=== PATIENT | male | born 1955 | race Caucasian/White ===

== ENCOUNTER 2019-02-09 10:05 | Observation (INO) | payer OTHER ==
[2019-02-09 10:26] LABS: ADD MAN DIFF? NO
[2019-02-09 10:30] LABS: ABNORMAL IP MESSAGE 1; BASOPHILS % 0.4 % (0.0-2.0); EOSINOPHILS # 0.1 10^3/ul (0.0-0.5); HEMATOCRIT 40.8 % (42.0-52.0); HEMOGLOBIN 13.5 g/dl (14.0-18.0); LYMPHOCYTES # 1.1 10^3/ul (0.8-2.9); LYMPHOCYTES % 21.6 % (15.0-51.0); MEAN CORPUSCULAR HEMOGLOBIN 32.5 pg (29.0-33.0); MEAN CORPUSCULAR HGB CONC 33.1 g/dl (32.0-37.0); MEAN CORPUSCULAR VOLUME 98.3 fl (82.0-101.0); MEAN PLATELET VOLUME 13.1 fl (7.4-10.4); MONOCYTE # 0.6 10^3/ul (0.3-0.9); MONOCYTES % 11.5 % (0.0-11.0); NEUTROPHIL # 3.2 10^3/ul (1.6-7.5); NEUTROPHILS % 64.9 % (39.0-77.0); PLATELET COUNT 58 10^3/UL (140-415); POSITIVE DIFF @See below; RED BLOOD COUNT 4.15 10^6/ul (4.70-6.10); RED CELL DISTRIBUTION WIDTH 13.5 % (11.5-14.5)
[2019-02-09] MEDS: LEVETIRACETAM 1000 MG (PMX) 100 ML IVPB ×2 (10:33→20:59)
[2019-02-09 10:47] LABS: ALANINE AMINOTRANSFERASE 24 IU/L (13-69); ALBUMIN 3.5 g/dl (3.3-4.9); ALBUMIN/GLOBULIN RATIO 0.71; ALKALINE PHOSPHATASE 126 IU/L (42-121); ANION GAP 22 (5-13); ASPARTATE AMINO TRANSFERASE 53 IU/L (15-46); BILIRUBIN,INDIRECT 1.3 mg/dl (0-1.1); BILIRUBIN,TOTAL 1.3 mg/dl (0.2-1.3); BLOOD UREA NITROGEN 24 mg/dl (7-20); CALCIUM 8.3 mg/dl (8.4-10.2); CARBON DIOXIDE 17 mmol/L (21-31); CHLORIDE 103 mmol/L (97-110); CREATININE 1.14 mg/dl (0.61-1.24); Estimated GFR > 60 mL/min (>60); GLUCOSE 138 mg/dl (70-220); POTASSIUM 3.6 mmol/L (3.5-5.1); SODIUM 142 mmol/L (135-144); TOTAL PROTEIN 8.4 g/dl (6.1-8.1)
[2019-02-09 10:47] LABS: MAGNESIUM 2.1 mg/dl (1.7-2.5)
[2019-02-09 10:48] LABS: ACETAMINOPHEN < 10.0 ug/ml (10.0-30.0); ETHANOL < 10.0 mg/dl (0-0); SALICYLATE < 1.0 mg/dl (5.0-30.0)
[2019-02-09 10:48] LABS: AMMONIA 280 umol/l (9-30)
[2019-02-09 10:49] LABS: INR 1.15; PROTIME 14.8 Sec (11.9-14.9); PT RATIO 1.2
[2019-02-09 10:50] LABS: PARTIAL THROMBOPLASTIN TIME 35.2 Sec (23.0-35.0)
[2019-02-09 10:58] LABS: TROPONIN-I < 0.012 ng/ml (0.000-0.120)
[2019-02-09] MEDS: ONDANSETRON 4 MG INJ IV (11:05)
[2019-02-09] MEDS: DEXAMETHASONE 10 MG/ML 1 ML INJ IM (11:29)
[2019-02-09] MEDS ORDERED: ACETAMINOPHEN 325 MG TAB PO ×2 (12:00→14:30)
[2019-02-09] MEDS ORDERED: ONDANSETRON 4 MG INJ IV ×2 (12:00→14:30)
[2019-02-09] MEDS: LACTULOSE 30ML CUP PO ×3 (13:45→17:10)
[2019-02-09] MEDS ORDERED: ZOLPIDEM 5 MG TAB PO (14:30)
[2019-02-09] MEDS ORDERED: traMADol 50 MG TAB PO (15:00)
[2019-02-09] MEDS: DEXAMETHASONE 4 MG/ML 1 ML INJ IV ×2 (15:54→17:10)
[2019-02-09] MEDS: SPIRONOLACTONE 50 MG TAB PO (15:54)
[2019-02-09] MEDS: FUROSEMIDE 40 MG TAB PO (15:55)
[2019-02-09 16:27] LABS: LACTIC ACID 3.3 mmol/L (0.5-2.0)
[2019-02-09] MEDS: PANTOPRAZOLE 40 MG INJ IV (17:11)
[2019-02-09] MEDS ORDERED: DEXAMETHASONE 4 MG/ML 1 ML INJ IV (18:00)
[2019-02-09 20:12] LABS: LACTIC ACID 4.6 mmol/L (0.5-2.0)
[2019-02-10] MEDS: DEXAMETHASONE 4 MG/ML 1 ML INJ IV ×3 (00:38→13:28)
[2019-02-10] MEDS: LACTULOSE 30ML CUP PO ×3 (00:38→13:28)
[2019-02-10] MEDS: FUROSEMIDE 40 MG TAB PO (05:56)
[2019-02-10] MEDS: PANTOPRAZOLE 40 MG INJ IV (06:01)
[2019-02-10] MEDS: SPIRONOLACTONE 50 MG TAB PO (06:02)
[2019-02-10 06:24] LABS: ADD MAN DIFF? NO
[2019-02-10 06:26] LABS: ABNORMAL IP MESSAGE 1; BASOPHILS % 0.1 % (0.0-2.0); HEMATOCRIT 33.7 % (42.0-52.0); HEMOGLOBIN 11.8 g/dl (14.0-18.0); LYMPHOCYTES # 0.5 10^3/ul (0.8-2.9); LYMPHOCYTES % 6.1 % (15.0-51.0); MEAN CORPUSCULAR VOLUME 94.1 fl (82.0-101.0); MEAN PLATELET VOLUME 12.8 fl (7.4-10.4); MONOCYTE # 0.2 10^3/ul (0.3-0.9); MONOCYTES % 2.7 % (0.0-11.0); NEUTROPHIL # 6.8 10^3/ul (1.6-7.5); NEUTROPHILS % 90.6 % (39.0-77.0); PLATELET COUNT 55 10^3/UL (140-415); POSITIVE DIFF @See below; RED BLOOD COUNT 3.58 10^6/ul (4.70-6.10); RED CELL DISTRIBUTION WIDTH 12.6 % (11.5-14.5)
[2019-02-10 06:26] LABS: WHITE BLOOD COUNT 7.5 10^3/ul (4.8-10.8)
[2019-02-10] MEDS: LEVETIRACETAM 1000 MG (PMX) 100 ML IVPB (09:05)
[2019-02-10] MEDS: oxyCODONE (CR) 10 MG TAB [oxyCONTIN] PO (11:06)
== END 2019-02-10 15:20 | disposition home or self-care (01) ==
LOC: E/R 10:05 → TEL 11:58
PROVIDERS: Internal Medicine
DX: G40.909 Epilepsy, unspecified, not intractable, without status epilepticus (principal); G93.9 Disorder of brain, unspecified; I10 Essential (primary) hypertension; K74.60 Unspecified cirrhosis of liver; D69.6 Thrombocytopenia, unspecified; E11.9 Type 2 diabetes mellitus without complications
CPT/HCPCS: 36415; 70450; 70553; 71045; 80053; 80307; 82140; 83605; 83735; 84484; 85025; 85610; 85730; 93005; 95819; 96372; 96374; 96375; 99285-25; G0378

== ENCOUNTER 2019-02-23 11:43 | Inpatient (IN) | payer OTHER ==
[2019-02-23] MEDS: LACTULOSE 30ML CUP PO (11:45)
[2019-02-23 12:14] LABS: ADD MAN DIFF? NO
[2019-02-23 12:19] LABS: WHITE BLOOD COUNT 14.8 10^3/ul (4.8-10.8)
[2019-02-23 12:19] LABS: ABNORMAL IP MESSAGE 1; BASOPHILS % 0.2 % (0.0-2.0); HEMATOCRIT 44.2 % (42.0-52.0); HEMOGLOBIN 15.5 g/dl (14.0-18.0); LYMPHOCYTES # 0.7 10^3/ul (0.8-2.9); LYMPHOCYTES % 4.9 % (15.0-51.0); MEAN CORPUSCULAR HEMOGLOBIN 32.2 pg (29.0-33.0); MEAN CORPUSCULAR HGB CONC 35.1 g/dl (32.0-37.0); MEAN CORPUSCULAR VOLUME 91.9 fl (82.0-101.0); MEAN PLATELET VOLUME 12.7 fl (7.4-10.4); MONOCYTE # 0.9 10^3/ul (0.3-0.9); MONOCYTES % 6.3 % (0.0-11.0); NEUTROPHILS % 87.7 % (39.0-77.0); PLATELET COUNT 56 10^3/UL (140-415); POSITIVE DIFF @See below; RED BLOOD COUNT 4.81 10^6/ul (4.70-6.10); RED CELL DISTRIBUTION WIDTH 12.6 % (11.5-14.5)
[2019-02-23] MEDS: HALOPERIDOL 5 MG INJ IM ×2 (12:27→13:40)
[2019-02-23 12:37] LABS: ALANINE AMINOTRANSFERASE 63 IU/L (13-69); ALBUMIN/GLOBULIN RATIO 0.66; ALKALINE PHOSPHATASE 110 IU/L (42-121); ANION GAP 12 (5-13); ASPARTATE AMINO TRANSFERASE 36 IU/L (15-46); BILIRUBIN,INDIRECT 1.5 mg/dl (0-1.1); BILIRUBIN,TOTAL 1.5 mg/dl (0.2-1.3); BLOOD UREA NITROGEN 48 mg/dl (7-20); CALCIUM 8.4 mg/dl (8.4-10.2); CARBON DIOXIDE 25 mmol/L (21-31); CHLORIDE 92 mmol/L (97-110); CREATININE 0.78 mg/dl (0.61-1.24); Estimated GFR > 60 mL/min (>60); POTASSIUM 4.1 mmol/L (3.5-5.1); SODIUM 129 mmol/L (135-144); TOTAL PROTEIN 7.5 g/dl (6.1-8.1)
[2019-02-23 13:03] LABS: ACETAMINOPHEN < 10.0 ug/ml (10.0-30.0); ETHANOL < 10.0 mg/dl (0-0); SALICYLATE < 1.0 mg/dl (5.0-30.0)
[2019-02-23 13:04] LABS: GLUCOSE 460 mg/dl (70-220)
[2019-02-23 13:04] LABS: AMMONIA 175 umol/l (9-30)
[2019-02-23] MEDS ORDERED: LORAZEPAM 2 MG INJ (13:37)
[2019-02-23] MEDS: LORAZEPAM 2 MG INJ IV (13:40)
[2019-02-23] MEDS: LACTULOSE ENEMA 1,000 ML BTL PR (13:54)
[2019-02-23] MEDS ORDERED: ACETAMINOPHEN 325 MG TAB PO (14:00)
[2019-02-23] MEDS ORDERED: ONDANSETRON 4 MG INJ IV (14:00)
[2019-02-23] MEDS: LIDOCAINE 2% 20 ML UROJET SYRINGE MM (15:01)
[2019-02-23] MEDS: LACTULOSE 30ML CUP NGT ×2 (15:11→23:40)
[2019-02-23] MEDS ORDERED: NACL 0.9% 3 ML SYG IV (16:00)
[2019-02-23] MEDS: FOLIC ACID 1 MG TAB NGT (16:45)
[2019-02-23] MEDS: DEXAMETHASONE 4 MG TAB NGT ×2 (16:45→23:41)
[2019-02-23] MEDS: ACCU-CHEK XX (16:45)
[2019-02-23] MEDS: INSULIN ASPART [NOVOLOG] 3 ML PEN SC (16:47)
[2019-02-23] MEDS: INSULIN GLARGINE [LANTus] (100 UNITS/ML) SYG SC (16:57)
[2019-02-23] MEDS: POTASSIUM CHLORIDE 10 MEQ in SOD CHLORIDE 0.9% 1,000 ML IV (17:45)
[2019-02-23 17:50] LABS: LACTIC ACID 4.6 mmol/L (0.5-2.0)
[2019-02-23] MEDS: PIPER-TAZO 3.375 GM IV (PMX) 100 ML IVPB (18:51)
[2019-02-23 19:09] LABS: LACTIC ACID 4.3 mmol/L (0.5-2.0)
[2019-02-23] MEDS ORDERED: GLUCOSE GEL 15 GRAM TUBE BUCCAL (22:00)
[2019-02-23] MEDS ORDERED: GLUCAGON 1 MG INJ IM (22:00)
[2019-02-23] MEDS ORDERED: GLUCOSE GEL 15 GRAM TUBE PO ×2 (22:00)
[2019-02-23] MEDS ORDERED: DEXTROSE 50% 50 ML SYRINGE IV ×2 (22:00)
[2019-02-23] MEDS: FAMOTIDINE 20 MG INJ IV (23:40)
[2019-02-23] MEDS: LEVETIRACETAM 500 MG TAB NGT (23:40)
[2019-02-23 23:54] LABS: ANION GAP 10 (5-13); BLOOD UREA NITROGEN 46 mg/dl (7-20); CALCIUM 8.2 mg/dl (8.4-10.2); CARBON DIOXIDE 25 mmol/L (21-31); CHLORIDE 94 mmol/L (97-110); Estimated GFR > 60 mL/min (>60); GLUCOSE 321 mg/dl (70-220); POTASSIUM 3.4 mmol/L (3.5-5.1); SODIUM 129 mmol/L (135-144)
[2019-02-24] LABS: AMMONIA 133 umol/l (9-30)
[2019-02-24 00:04] LABS: LACTIC ACID 3.9 mmol/L (0.5-2.0)
[2019-02-24] MEDS: ACCU-CHEK XX ×9 (01:00→17:11)
[2019-02-24] MEDS: PIPER-TAZO 3.375 GM IV (PMX) 100 ML IVPB ×3 (02:56→17:29)
[2019-02-24] MEDS: NS + KCL 20 MEQ 1,000 ML IV ×3 (02:56→20:29)
[2019-02-24 05:14] LABS: ADD MAN DIFF? NO
[2019-02-24 05:21] LABS: ABNORMAL IP MESSAGE 1; BASOPHILS % 0.2 % (0.0-2.0); HEMATOCRIT 37.9 % (42.0-52.0); HEMOGLOBIN 13.6 g/dl (14.0-18.0); LYMPHOCYTES # 0.4 10^3/ul (0.8-2.9); MEAN CORPUSCULAR HEMOGLOBIN 32.5 pg (29.0-33.0); MEAN CORPUSCULAR HGB CONC 35.9 g/dl (32.0-37.0); MEAN CORPUSCULAR VOLUME 90.5 fl (82.0-101.0); MEAN PLATELET VOLUME 13.3 fl (7.4-10.4); MONOCYTE # 0.5 10^3/ul (0.3-0.9); MONOCYTES % 4.1 % (0.0-11.0); NEUTROPHIL # 10.6 10^3/ul (1.6-7.5); NEUTROPHILS % 91.9 % (39.0-77.0); PLATELET COUNT 43 10^3/UL (140-415); POSITIVE DIFF @See below; RED BLOOD COUNT 4.19 10^6/ul (4.70-6.10); RED CELL DISTRIBUTION WIDTH 12.6 % (11.5-14.5)
[2019-02-24 05:21] LABS: WHITE BLOOD COUNT 11.5 10^3/ul (4.8-10.8)
[2019-02-24 05:58] LABS: AMMONIA 154 umol/l (9-30)
[2019-02-24] MEDS: DEXAMETHASONE 4 MG TAB NGT ×3 (06:06→21:35)
[2019-02-24] MEDS: INSULIN LISPRO 100 UNIT/ML VIAL SC (06:09)
[2019-02-24 06:22] LABS: ANION GAP 8 (5-13); BLOOD UREA NITROGEN 45 mg/dl (7-20); CALCIUM 7.9 mg/dl (8.4-10.2); CARBON DIOXIDE 26 mmol/L (21-31); CHLORIDE 98 mmol/L (97-110); CREATININE 0.84 mg/dl (0.61-1.24); Estimated GFR > 60 mL/min (>60); GLUCOSE 340 mg/dl (70-220); MAGNESIUM 2.9 mg/dl (1.7-2.5); POTASSIUM 3.7 mmol/L (3.5-5.1); SODIUM 132 mmol/L (135-144)
[2019-02-24 06:23] LABS: CREATINE KINASE 107 IU/L (23-200)
[2019-02-24 06:35] LABS: CK INDEX 1.1; CK-MB 1.17 ng/ml (0.0-2.4); TROPONIN-I < 0.012 ng/ml (0.000-0.120)
[2019-02-24 07:22] LABS: HEMOGLOBIN A1C 8.2 % (0-5.9)
[2019-02-24] MEDS: FOLIC ACID 1 MG TAB NGT (08:36)
[2019-02-24] MEDS: SPIRONOLACTONE 50 MG TAB NGT (08:36)
[2019-02-24] MEDS: LEVETIRACETAM 500 MG TAB NGT ×2 (08:36→20:29)
[2019-02-24] MEDS: FUROSEMIDE 40 MG TAB NGT (08:37)
[2019-02-24] MEDS: FAMOTIDINE 20 MG INJ IV ×2 (08:37→20:28)
[2019-02-24] MEDS: LACTULOSE 30ML CUP NGT ×3 (08:37→20:28)
[2019-02-24] MEDS: INSULIN ASPART [NOVOLOG] 3 ML PEN SC ×3 (10:39→21:36)
[2019-02-24] MEDS: ONDANSETRON 4 MG INJ IV (10:42)
[2019-02-24 11:07] LABS: CREATINE KINASE 96 IU/L (23-200)
[2019-02-24 11:20] LABS: CK INDEX 1.4; CK-MB 1.32 ng/ml (0.0-2.4); TROPONIN-I < 0.012 ng/ml (0.000-0.120)
[2019-02-24] MEDS ORDERED: SERTRALINE 50 MG TAB PO (17:40)
[2019-02-24 18:02] LABS: INR 1.29; PROTIME 16.2 Sec (11.9-14.9); PT RATIO 1.3
[2019-02-24] MEDS: QUETIAPINE 25 MG TAB PO (18:02)
[2019-02-24 18:33] LABS: AMMONIA 28 umol/l (9-30)
[2019-02-24 18:34] LABS: ANION GAP 12 (5-13); BLOOD UREA NITROGEN 51 mg/dl (7-20); CALCIUM 8.2 mg/dl (8.4-10.2); CARBON DIOXIDE 22 mmol/L (21-31); CHLORIDE 102 mmol/L (97-110); Estimated GFR > 60 mL/min (>60); GLUCOSE 238 mg/dl (70-220); POTASSIUM 3.8 mmol/L (3.5-5.1); SODIUM 136 mmol/L (135-144)
[2019-02-24 18:42] LABS: AMPHETAMINE/METHAMPHETAMINE Negative (NEGATIVE); BARBITURATES Negative (NEGATIVE); BENZODIAZEPINES Negative (NEGATIVE); CANNABINOIDS Negative (NEGATIVE); COCAINE Negative (NEGATIVE); OPIATES Negative (NEGATIVE)
[2019-02-24 19:29] LABS: ADD UMIC YES; UR ASCORBIC ACID NEGATIVE (NEGATIVE); UR BILIRUBIN (Dip) NEGATIVE (NEGATIVE); UR BLOOD (Dip) 1+ mg/dL (NEGATIVE); UR CLARITY CLEAR (CLEAR); UR COLOR YELLOW (YELLOW); UR GLUCOSE (Dip) NEGATIVE (NEGATIVE); UR HYALINE CAST MODERATE /HPF (NONE SEEN); UR KETONES (Dip) NEGATIVE (NEGATIVE); UR LEUKOCYTE ESTERASE (Dip) NEGATIVE Leu/ul (NEGATIVE); UR NITRITE (Dip) NEGATIVE (NEGATIVE); UR RBC 22 /HPF (0-5); UR TOTAL PROTEIN (Dip) NEGATIVE (NEGATIVE); UR UROBILINOGEN (Dip) NEGATIVE (NEGATIVE); UR WBC 0 /HPF (0-5)
[2019-02-24] MEDS: CEFTRIAXONE 1 GM/50 ML (PMX) 50 ML IVPB (20:28)
[2019-02-24] MEDS: RIFAXIMIN 550 MG TAB NGT (20:29)
[2019-02-24] MEDS: LORAZEPAM 2 MG INJ IV (23:58)
[2019-02-25] MEDS: INSULIN ASPART [NOVOLOG] 3 ML PEN SC ×6 (00:33→20:52)
[2019-02-25] MEDS: NS + KCL 20 MEQ 1,000 ML IV ×2 (00:44→10:28)
[2019-02-25] MEDS ORDERED: ACCU-CHEK XX (02:00)
[2019-02-25] MEDS: QUETIAPINE 25 MG TAB PO ×2 (04:30→20:40)
[2019-02-25 04:47] LABS: AADO2 Arterial 57.5 mmHg (7.0-24.0); Allen Test ACCEPTAB; Arterial Base Excess -0.1 mmol/L (-3.0-3); Arterial Blood Gas Oxygen Sat 88.4 mmHG (95.0-98.0); Arterial COHb 1.3 % (0.0-3.0); Arterial HCO3 22.4 mmol/L (22.0-26.0); Arterial MetHb 0.3 % (0.0-1.5); Arterial pCO2 30.7 mmhg (35-45); MODE ROOM AIR; Site Right Radial
[2019-02-25 05:19] LABS: ADD MAN DIFF? NO
[2019-02-25 05:24] LABS: WHITE BLOOD COUNT 17.4 10^3/ul (4.8-10.8)
[2019-02-25 05:24] LABS: ABNORMAL IP MESSAGE 1; BASOPHILS % 0.2 % (0.0-2.0); HEMATOCRIT 40.9 % (42.0-52.0); HEMOGLOBIN 13.8 g/dl (14.0-18.0); LYMPHOCYTES # 0.4 10^3/ul (0.8-2.9); LYMPHOCYTES % 2.4 % (15.0-51.0); MEAN CORPUSCULAR HEMOGLOBIN 32.2 pg (29.0-33.0); MEAN CORPUSCULAR HGB CONC 33.7 g/dl (32.0-37.0); MEAN CORPUSCULAR VOLUME 95.3 fl (82.0-101.0); MEAN PLATELET VOLUME 13.4 fl (7.4-10.4); MONOCYTE # 0.7 10^3/ul (0.3-0.9); MONOCYTES % 3.8 % (0.0-11.0); NEUTROPHIL # 16.2 10^3/ul (1.6-7.5); NEUTROPHILS % 92.8 % (39.0-77.0); POSITIVE DIFF @See below; RED BLOOD COUNT 4.29 10^6/ul (4.70-6.10); RED CELL DISTRIBUTION WIDTH 13.1 % (11.5-14.5)
[2019-02-25] MEDS: DEXAMETHASONE 4 MG TAB NGT ×3 (05:24→22:41)
[2019-02-25 05:43] LABS: LACTIC ACID 4.7 mmol/L (0.5-2.0)
[2019-02-25 05:44] LABS: ANION GAP 8 (5-13); BLOOD UREA NITROGEN 55 mg/dl (7-20); CALCIUM 8.4 mg/dl (8.4-10.2); CARBON DIOXIDE 27 mmol/L (21-31); CHLORIDE 106 mmol/L (97-110); CREATININE 1.16 mg/dl (0.61-1.24); Estimated GFR > 60 mL/min (>60); GLUCOSE 186 mg/dl (70-220); PLATELET COUNT 30 10^3/UL (140-415); SODIUM 141 mmol/L (135-144)
[2019-02-25] MEDS: FAMOTIDINE 20 MG INJ IV ×2 (09:49→20:47)
[2019-02-25] MEDS: FOLIC ACID 1 MG TAB NGT (10:02)
[2019-02-25] MEDS: LACTULOSE 30ML CUP NGT ×3 (10:02→20:47)
[2019-02-25] MEDS: RIFAXIMIN 550 MG TAB NGT ×2 (10:02→20:47)
[2019-02-25] MEDS: LEVETIRACETAM 500 MG TAB NGT ×2 (10:02→22:40)
[2019-02-25] MEDS: FUROSEMIDE 40 MG TAB NGT (10:03)
[2019-02-25] MEDS: SPIRONOLACTONE 50 MG TAB NGT (10:03)
[2019-02-25] MEDS: PIPER-TAZO 3.375 GM IV (PMX) 100 ML IVPB ×2 (14:52→22:44)
[2019-02-25] MEDS: INSULIN GLARGINE [LANTus] (100 UNITS/ML) SYG SC (20:49)
[2019-02-26] MEDS: INSULIN ASPART [NOVOLOG] 3 ML PEN SC ×6 (01:30→21:28)
[2019-02-26] MEDS: NS + KCL 20 MEQ 1,000 ML IV ×3 (03:19→23:05)
[2019-02-26] MEDS: QUETIAPINE 25 MG TAB PO (04:43)
[2019-02-26] MEDS: PIPER-TAZO 3.375 GM IV (PMX) 100 ML IVPB (05:08)
[2019-02-26] MEDS: DEXAMETHASONE 4 MG TAB NGT ×2 (05:09→14:00)
[2019-02-26 05:56] LABS: ADD MAN DIFF? NO
[2019-02-26 05:59] LABS: WHITE BLOOD COUNT 8.7 10^3/ul (4.8-10.8)
[2019-02-26 05:59] LABS: ABNORMAL IP MESSAGE 1; BASOPHILS % 0.2 % (0.0-2.0); HEMATOCRIT 38.7 % (42.0-52.0); HEMOGLOBIN 13.2 g/dl (14.0-18.0); LYMPHOCYTES # 0.3 10^3/ul (0.8-2.9); LYMPHOCYTES % 3.1 % (15.0-51.0); MEAN CORPUSCULAR HEMOGLOBIN 32.5 pg (29.0-33.0); MEAN CORPUSCULAR HGB CONC 34.1 g/dl (32.0-37.0); MEAN CORPUSCULAR VOLUME 95.3 fl (82.0-101.0); MONOCYTE # 0.3 10^3/ul (0.3-0.9); MONOCYTES % 3.8 % (0.0-11.0); NEUTROPHILS % 92.4 % (39.0-77.0); POSITIVE DIFF @See below; RED BLOOD COUNT 4.06 10^6/ul (4.70-6.10)
[2019-02-26 06:05] LABS: PLATELET COUNT 23 10^3/UL (140-415)
[2019-02-26] MEDS ORDERED: HALOPERIDOL 5 MG INJ IM ×2 (06:30)
[2019-02-26 06:39] LABS: AMMONIA 26 umol/l (9-30)
[2019-02-26 06:41] LABS: ANION GAP 7 (5-13); BLOOD UREA NITROGEN 56 mg/dl (7-20); CALCIUM 8.3 mg/dl (8.4-10.2); CARBON DIOXIDE 23 mmol/L (21-31); CHLORIDE 110 mmol/L (97-110); CREATININE 1.03 mg/dl (0.61-1.24); Estimated GFR > 60 mL/min (>60); GLUCOSE 247 mg/dl (70-220); SODIUM 140 mmol/L (135-144)
[2019-02-26 08:01] LABS: ANISOCYTOSIS 1+ (0-0); BURR CELLS 1+ (0-0); GIANT THROMBO% (M) 2 % (0-0); LYMPHOCYTES #M 0.1 10^3/ul (0.8-2.9); LYMPHOCYTES % (M) 2 % (15-51); MONOCYTE #M 0.1 10^3/ul (0.3-0.9); MONOCYTES % (M) 2 % (0-11); PLATELET ESTIMATE SIG DECREASED; PLATELET MORPHOLOGY COMMENT @See below; SEGMENTED NEUTROPHILS (M) % 96 % (39-77); SMUDGE%M 13 % (0-0)
[2019-02-26] MEDS: FAMOTIDINE 20 MG INJ IV ×2 (10:00→21:20)
[2019-02-26] MEDS: CEFEPIME 1GM/50 ML (PMX) 50 ML IVPB ×2 (10:00→21:20)
[2019-02-26] MEDS: SPIRONOLACTONE 50 MG TAB NGT (10:03)
[2019-02-26] MEDS: FOLIC ACID 1 MG TAB NGT (10:04)
[2019-02-26] MEDS: LEVETIRACETAM 500 MG TAB NGT ×2 (10:04→21:21)
[2019-02-26] MEDS: LACTULOSE 30ML CUP NGT ×3 (10:04→21:20)
[2019-02-26] MEDS: FUROSEMIDE 40 MG TAB NGT (10:05)
[2019-02-26] MEDS: RIFAXIMIN 550 MG TAB NGT ×2 (10:05→21:21)
[2019-02-26 17:24] LABS: HEPATITIS B SURFACE ANTIGEN NEGATIVE (NEGATIVE)
[2019-02-26 17:42] LABS: HEPATITIS C VIRAL ANTIBODY NEGATIVE (NEGATIVE)
[2019-02-26] MEDS: DEXAMETHASONE 4 MG/ML 1 ML INJ IV ×2 (19:09→23:05)
[2019-02-26] MEDS: INSULIN GLARGINE [LANTus] (100 UNITS/ML) SYG SC (21:24)
[2019-02-27] MEDS: INSULIN ASPART [NOVOLOG] 3 ML PEN SC ×4 (01:21→13:00)
[2019-02-27] MEDS: DEXAMETHASONE 4 MG/ML 1 ML INJ IV ×2 (05:26→12:01)
[2019-02-27 06:02] LABS: ADD MAN DIFF? NO
[2019-02-27 06:11] LABS: WHITE BLOOD COUNT 8.3 10^3/ul (4.8-10.8)
[2019-02-27 06:11] LABS: ABNORMAL IP MESSAGE 1; BASOPHILS % 0.1 % (0.0-2.0); HEMATOCRIT 39.5 % (42.0-52.0); HEMOGLOBIN 13.4 g/dl (14.0-18.0); LYMPHOCYTES # 0.3 10^3/ul (0.8-2.9); LYMPHOCYTES % 3.9 % (15.0-51.0); MEAN CORPUSCULAR HEMOGLOBIN 32.4 pg (29.0-33.0); MEAN CORPUSCULAR HGB CONC 33.9 g/dl (32.0-37.0); MEAN CORPUSCULAR VOLUME 95.6 fl (82.0-101.0); MEAN PLATELET VOLUME 13.2 fl (7.4-10.4); MONOCYTE # 0.3 10^3/ul (0.3-0.9); MONOCYTES % 3.4 % (0.0-11.0); NEUTROPHIL # 7.6 10^3/ul (1.6-7.5); NEUTROPHILS % 91.9 % (39.0-77.0); POSITIVE DIFF @See below; RED BLOOD COUNT 4.13 10^6/ul (4.70-6.10)
[2019-02-27 06:34] LABS: ANION GAP 4 (5-13); BLOOD UREA NITROGEN 50 mg/dl (7-20); CALCIUM 8.4 mg/dl (8.4-10.2); CARBON DIOXIDE 26 mmol/L (21-31); CHLORIDE 103 mmol/L (97-110); CREATININE 0.83 mg/dl (0.61-1.24); Estimated GFR > 60 mL/min (>60); GLUCOSE 131 mg/dl (70-220); POTASSIUM 4.4 mmol/L (3.5-5.1); SODIUM 133 mmol/L (135-144)
[2019-02-27 06:42] LABS: PLATELET COUNT 22 10^3/UL (140-415)
[2019-02-27] MEDS: FAMOTIDINE 20 MG INJ IV (08:20)
[2019-02-27] MEDS: CEFEPIME 1GM/50 ML (PMX) 50 ML IVPB (08:20)
[2019-02-27] MEDS: LACTULOSE 30ML CUP NGT ×3 (08:21→13:00)
[2019-02-27] MEDS: FUROSEMIDE 40 MG TAB NGT (08:21)
[2019-02-27] MEDS: LEVETIRACETAM 500 MG TAB NGT (08:21)
[2019-02-27] MEDS: SPIRONOLACTONE 50 MG TAB NGT (08:21)
[2019-02-27] MEDS: FOLIC ACID 1 MG TAB NGT (08:21)
[2019-02-27] MEDS: RIFAXIMIN 550 MG TAB NGT (08:21)
[2019-02-27 09:52] LABS: PATH REVIEWED BY Y
[2019-02-27 13:22] LABS: MITOCHONDRIAL TB NEGATIVE (NEGATIVE); SMOOTH MUSCLE AB SCREEN POSITIVE (NEGATIVE); SMOOTH MUSCLE AB TITER 1:40 titer (<1:20)
[2019-02-27 19:37] LABS: ANA SCREEN POSITIVE (NEGATIVE)
[2019-02-28 21:13] LABS: ANA PATTERN NUCLEOLAR
== END 2019-02-27 17:00 | DRG 441 ==
LOC: 6WM 02-26 20:21 → E/R 11:43 → 6WM 02-25 17:09 → TEL 13:58 → ICU 21:18
DX: K72.90 Hepatic failure, unspecified without coma (principal); G93.6 Cerebral edema; R18.8 Other ascites; E87.2 Acidosis; D32.0 Benign neoplasm of cerebral meninges; K74.69 Other cirrhosis of liver; D69.6 Thrombocytopenia, unspecified; I10 Essential (primary) hypertension; E11.65 Type 2 diabetes mellitus with hyperglycemia; G40.909 Epilepsy, unspecified, not intractable, without status epilepticus
CPT/HCPCS: 36600; 70450; 71045; 73090-RT; 73100; 76705; 80048; 80053; 80307; 81001; 82140; 82550; 82553; 82728; 82803; 82962; 83036; 83605; 83735; 84443; 84484; 85025; 85610; 86038; 86255; 86803; 87040-91; 87081; 87340; 92610; 93005; 96372; 96374; 99285-25

== ENCOUNTER 2019-03-05 20:15 | Inpatient (IN) | payer OTHER ==
[2019-03-05 20:44] LABS: WHITE BLOOD COUNT 11.3 10^3/ul (4.8-10.8)
[2019-03-05 20:44] LABS: ABNORMAL IP MESSAGE 1; HEMATOCRIT 44.8 % (42.0-52.0); HEMOGLOBIN 15.3 g/dl (14.0-18.0); MEAN CORPUSCULAR HEMOGLOBIN 32.3 pg (29.0-33.0); MEAN CORPUSCULAR HGB CONC 34.2 g/dl (32.0-37.0); MEAN CORPUSCULAR VOLUME 94.5 fl (82.0-101.0); PLATELET COUNT 57 10^3/UL (140-415); POSITIVE DIFF @See below; RED BLOOD COUNT 4.74 10^6/ul (4.70-6.10); RED CELL DISTRIBUTION WIDTH 14.1 % (11.5-14.5)
[2019-03-05 20:48] LABS: ADD MAN DIFF? YES
[2019-03-05 21:10] LABS: BAND NEUTROPHILS #M 0.1 10^3/ul (0.0-0.6); BAND NEUTROPHILS % (M) 1 % (0-4); LYMPHOCYTES % (M) 9 % (15-51); MONOCYTES % (M) 9 % (0-11); PLATELET ESTIMATE DECREASED; POIKILOCYTOSIS 2+ (0-0); PROMYELOCYTES #M 0.1 10^3/ul (0-0); PROMYELOCYTES % (M) 1 % (0-0); REACTIVE LYMPHOCYTES #M 0.1 10^3/ul (0.0-0.0); REACTIVE LYMPHOCYTES% (M) 1 % (0-0); SEG NEUT #M 8.9 10^3/ul (1.6-7.5); SEGMENTED NEUTROPHILS (M) % 79 % (39-77); SMUDGE%M 1 % (0-0)
[2019-03-05] MEDS: CEFTRIAXONE 1 GM/50 ML (PMX) 50 ML IVPB (21:26)
[2019-03-05 21:27] LABS: ADD UMIC NO; UR ASCORBIC ACID NEGATIVE (NEGATIVE); UR BILIRUBIN (Dip) NEGATIVE (NEGATIVE); UR BLOOD (Dip) NEGATIVE (NEGATIVE); UR CLARITY CLEAR (CLEAR); UR COLOR YELLOW (YELLOW); UR GLUCOSE (Dip) NEGATIVE (NEGATIVE); UR KETONES (Dip) NEGATIVE (NEGATIVE); UR LEUKOCYTE ESTERASE (Dip) NEGATIVE Leu/ul (NEGATIVE); UR NITRITE (Dip) NEGATIVE (NEGATIVE); UR TOTAL PROTEIN (Dip) NEGATIVE (NEGATIVE); UR UROBILINOGEN (Dip) 2+ mg/dL (NEGATIVE)
[2019-03-05] MEDS: SODIUM CHLORIDE 0.9% 1L BAG IV* (21:27)
[2019-03-05 21:30] LABS: ALANINE AMINOTRANSFERASE 110 IU/L (13-69); ALBUMIN 2.9 g/dl (3.3-4.9); ALBUMIN/GLOBULIN RATIO 0.74; ALKALINE PHOSPHATASE 97 IU/L (42-121); ANION GAP 6 (5-13); ASPARTATE AMINO TRANSFERASE 69 IU/L (15-46); BILIRUBIN,INDIRECT 2.5 mg/dl (0-1.1); BILIRUBIN,TOTAL 2.5 mg/dl (0.2-1.3); BLOOD UREA NITROGEN 31 mg/dl (7-20); CALCIUM 8.9 mg/dl (8.4-10.2); CARBON DIOXIDE 26 mmol/L (21-31); CHLORIDE 100 mmol/L (97-110); CREATININE 0.97 mg/dl (0.61-1.24); Estimated GFR > 60 mL/min (>60); GLUCOSE 163 mg/dl (70-220); MAGNESIUM 1.8 mg/dl (1.7-2.5); POTASSIUM 4.8 mmol/L (3.5-5.1); SODIUM 132 mmol/L (135-144); TOTAL PROTEIN 6.8 g/dl (6.1-8.1)
[2019-03-05 21:32] LABS: ETHANOL < 10.0 mg/dl (0-0)
[2019-03-05 21:33] LABS: AMMONIA 105 umol/l (9-30)
[2019-03-05 21:45] LABS: TROPONIN-I < 0.012 ng/ml (0.000-0.120)
[2019-03-05 21:46] LABS: AMPHETAMINE/METHAMPHETAMINE NEGATIVE (NEGATIVE); BARBITURATES NEGATIVE (NEGATIVE); BENZODIAZEPINES NEGATIVE (NEGATIVE); CANNABINOIDS NEGATIVE (NEGATIVE); COCAINE NEGATIVE (NEGATIVE); OPIATES NEGATIVE (NEGATIVE)
[2019-03-05] MEDS: RIFAXIMIN 550 MG TAB PO (23:00)
[2019-03-05] MEDS ORDERED: LACTULOSE 30ML CUP PO (23:00)
[2019-03-05] MEDS ORDERED: traMADol 50 MG TAB PO (23:00)
[2019-03-05 23:30] LABS: INR 1.31; PROTIME 16.4 Sec (11.9-14.9); PT RATIO 1.3
[2019-03-05] MEDS ORDERED: DEXTROSE 50% 50 ML SYRINGE IV ×2 (23:30)
[2019-03-05] MEDS ORDERED: GLUCAGON 1 MG INJ IM (23:30)
[2019-03-05] MEDS ORDERED: GLUCOSE GEL 15 GRAM TUBE PO ×2 (23:30)
[2019-03-05] MEDS ORDERED: ONDANSETRON 4 MG INJ IV (23:30)
[2019-03-05] MEDS ORDERED: GLUCOSE GEL 15 GRAM TUBE BUCCAL (23:30)
[2019-03-05 23:38] LABS: LACTIC ACID 3.1 mmol/L (0.5-2.0)
[2019-03-06] MEDS: SOD CHLORIDE 0.9% 1,000 ML IV ×3 (02:14→16:44)
[2019-03-06 02:41] LABS: LACTIC ACID 0.9 mmol/L (0.5-2.0)
[2019-03-06] MEDS: LACTULOSE 30ML CUP NGT (05:17)
[2019-03-06] MEDS ORDERED: HALOPERIDOL 5 MG INJ IV (07:00)
[2019-03-06] MEDS ORDERED: INSULIN ASPART [NOVOLOG] 3 ML PEN SC (07:55)
[2019-03-06] MEDS: PANTOPRAZOLE (EC) 40 MG TAB PO (08:34)
[2019-03-06] MEDS: LACTULOSE 30ML CUP PO ×3 (08:34→20:16)
[2019-03-06] MEDS: LEVETIRACETAM 500 MG TAB PO ×2 (08:34→20:17)
[2019-03-06] MEDS: RIFAXIMIN 550 MG TAB PO ×2 (08:34→20:16)
[2019-03-06] MEDS: INSULIN ASPART [NOVOLOG] 3 ML PEN SC ×3 (11:27→23:17)
[2019-03-07] MEDS: SOD CHLORIDE 0.9% 1,000 ML IV ×4 (04:06→20:23)
[2019-03-07] MEDS: INSULIN ASPART [NOVOLOG] 3 ML PEN SC ×3 (05:45→17:23)
[2019-03-07 07:03] LABS: ADD MAN DIFF? NO
[2019-03-07 07:11] LABS: WHITE BLOOD COUNT 7.6 10^3/ul (4.8-10.8)
[2019-03-07 07:11] LABS: ABNORMAL IP MESSAGE 1; BASOPHILS % 0.1 % (0.0-2.0); EOSINOPHILS # 0.1 10^3/ul (0.0-0.5); EOSINOPHILS % 1.1 % (0.0-7.0); HEMATOCRIT 40.3 % (42.0-52.0); HEMOGLOBIN 13.6 g/dl (14.0-18.0); LYMPHOCYTES # 0.6 10^3/ul (0.8-2.9); LYMPHOCYTES % 7.4 % (15.0-51.0); MEAN CORPUSCULAR HEMOGLOBIN 32.4 pg (29.0-33.0); MEAN CORPUSCULAR HGB CONC 33.7 g/dl (32.0-37.0); MONOCYTE # 0.7 10^3/ul (0.3-0.9); MONOCYTES % 8.8 % (0.0-11.0); NEUTROPHIL # 6.2 10^3/ul (1.6-7.5); NEUTROPHILS % 81.7 % (39.0-77.0); PLATELET COUNT 47 10^3/UL (140-415); POSITIVE DIFF @See below; RED CELL DISTRIBUTION WIDTH 14.2 % (11.5-14.5)
[2019-03-07 07:22] LABS: AMMONIA < 9 umol/l (9-30)
[2019-03-07 07:28] LABS: ALANINE AMINOTRANSFERASE 104 IU/L (13-69); ALBUMIN 2.3 g/dl (3.3-4.9); ALBUMIN/GLOBULIN RATIO 0.67; ALKALINE PHOSPHATASE 73 IU/L (42-121); ANION GAP 5 (5-13); ASPARTATE AMINO TRANSFERASE 55 IU/L (15-46); BILIRUBIN,INDIRECT 3.8 mg/dl (0-1.1); BILIRUBIN,TOTAL 3.8 mg/dl (0.2-1.3); BLOOD UREA NITROGEN 26 mg/dl (7-20); CALCIUM 8.1 mg/dl (8.4-10.2); CARBON DIOXIDE 21 mmol/L (21-31); CHLORIDE 109 mmol/L (97-110); CREATININE 0.89 mg/dl (0.61-1.24); Estimated GFR > 60 mL/min (>60); GLUCOSE 114 mg/dl (70-220); POTASSIUM 4.7 mmol/L (3.5-5.1); SODIUM 135 mmol/L (135-144); TOTAL PROTEIN 5.7 g/dl (6.1-8.1)
[2019-03-07] MEDS: LEVETIRACETAM 500 MG TAB PO ×2 (08:50→20:22)
[2019-03-07] MEDS: RIFAXIMIN 550 MG TAB PO ×2 (08:50→20:22)
[2019-03-07] MEDS: LACTULOSE 30ML CUP PO ×3 (08:50→20:22)
[2019-03-07] MEDS: PANTOPRAZOLE (EC) 40 MG TAB PO (08:50)
[2019-03-08] MEDS: INSULIN ASPART [NOVOLOG] 3 ML PEN SC ×3 (01:00→12:22)
[2019-03-08 07:56] LABS: ADD MAN DIFF? NO
[2019-03-08 07:58] LABS: ABNORMAL IP MESSAGE 1; BASOPHILS % 0.3 % (0.0-2.0); EOSINOPHILS # 0.1 10^3/ul (0.0-0.5); EOSINOPHILS % 1.7 % (0.0-7.0); HEMATOCRIT 36.7 % (42.0-52.0); HEMOGLOBIN 12.7 g/dl (14.0-18.0); LYMPHOCYTES # 0.8 10^3/ul (0.8-2.9); LYMPHOCYTES % 10.6 % (15.0-51.0); MEAN CORPUSCULAR HGB CONC 34.6 g/dl (32.0-37.0); MEAN CORPUSCULAR VOLUME 95.3 fl (82.0-101.0); MEAN PLATELET VOLUME 11.7 fl (7.4-10.4); MONOCYTE # 0.9 10^3/ul (0.3-0.9); MONOCYTES % 11.4 % (0.0-11.0); NEUTROPHIL # 5.9 10^3/ul (1.6-7.5); PLATELET COUNT 50 10^3/UL (140-415); POSITIVE DIFF @See below; RED BLOOD COUNT 3.85 10^6/ul (4.70-6.10); RED CELL DISTRIBUTION WIDTH 14.1 % (11.5-14.5)
[2019-03-08 07:58] LABS: WHITE BLOOD COUNT 7.8 10^3/ul (4.8-10.8)
[2019-03-08 08:29] LABS: ALANINE AMINOTRANSFERASE 87 IU/L (13-69); ALBUMIN 2.3 g/dl (3.3-4.9); ALBUMIN/GLOBULIN RATIO 0.67; ALKALINE PHOSPHATASE 77 IU/L (42-121); ANION GAP 3 (5-13); ASPARTATE AMINO TRANSFERASE 57 IU/L (15-46); BILIRUBIN,INDIRECT 2.3 mg/dl (0-1.1); BILIRUBIN,TOTAL 2.3 mg/dl (0.2-1.3); BLOOD UREA NITROGEN 24 mg/dl (7-20); CALCIUM 7.6 mg/dl (8.4-10.2); CARBON DIOXIDE 20 mmol/L (21-31); CHLORIDE 107 mmol/L (97-110); CREATININE 0.83 mg/dl (0.61-1.24); Estimated GFR > 60 mL/min (>60); GLUCOSE 146 mg/dl (70-220); POTASSIUM 4.1 mmol/L (3.5-5.1); SODIUM 130 mmol/L (135-144); TOTAL PROTEIN 5.7 g/dl (6.1-8.1)
[2019-03-08] MEDS: RIFAXIMIN 550 MG TAB PO (08:44)
[2019-03-08] MEDS: PANTOPRAZOLE (EC) 40 MG TAB PO (08:45)
[2019-03-08] MEDS: LACTULOSE 30ML CUP PO ×2 (08:45→12:18)
[2019-03-08] MEDS: LEVETIRACETAM 500 MG TAB PO (08:45)
== END 2019-03-08 17:11 | disposition home or self-care (01) | DRG 443 ==
LOC: E/R 20:15 → TEL 22:56
DX: K72.90 Hepatic failure, unspecified without coma (principal); K74.69 Other cirrhosis of liver; D69.6 Thrombocytopenia, unspecified; G40.909 Epilepsy, unspecified, not intractable, without status epilepticus; R45.1 Restlessness and agitation
CPT/HCPCS: 70450; 71045; 80053; 80307; 81003; 82140; 82962; 83605; 83735; 84484; 85025; 85610; 85730; 87040-91; 87086; 93005; 96374; 99285-25